=== PATIENT | female | born 1970 | race Caucasian/White ===

== ENCOUNTER 2024-02-29 17:01 | Outpatient (CLI) | payer OTHER | END 2024-02-29 17:02 | disposition home or self-care (01) | LOC: NAV RAD 17:01 | PROVIDERS: ATTEND Student in an Organized Health Care Education/Training Program | DX: M46.1 Sacroiliitis, not elsewhere classified (principal); M47.816 Spondylosis without myelopathy or radiculopathy, lumbar region; M16.0 Bilateral primary osteoarthritis of hip | CPT/HCPCS: 72100; 72202 ==